=== PATIENT | male | born 1960 | race Caucasian/White ===

== ENCOUNTER 2018-08-30 05:48 | Day surgery (SDC) | payer MEDICAID ==
[~2018-08-30] VITALS: Ht 177.8 cm; Wt 118.2 kg
[2018-08-30 06:09] LABS: BASOPHILS 0.2 % (0-2); EOSINOPHILS 2.6 % (0-7); HEMATOCRIT 31.2 % (42.0-54.0); HEMOGLOBIN 10.4 g/dL (13.5-17.5); IMMATURE GRANULOCYTES 0.2 % (0-5); LYMPHOCYTES 22.3 % (15-50); MCH 29.1 pg (26.0-34.0); MCHC 33.3 g/dL (31.0-37.0); MCV 87.2 fL (80.0-100.0); MONOCYTES 7.5 % (2-11); NEUTROPHILS 67.2 % (40-80); PLATELET COUNT 186 10x3/uL (130-400); RBC 3.58 10x6/uL (4.20-6.10); RDW 15.8 % (11.5-14.5)
[2018-08-30 06:17] LABS: CREATININE - SERUM 9.6 mg/dL (0.6-1.3)
--- NOTE | 2018-08-30 06:56 | NUR ---
CHIKIS CALLED AT THIS TIME AND INFORMED OF PT BP. SEE ANESTHESIA ORDERS, NAD WILL CONTINUE TO MONITOR.
[2018-08-30] MEDS ORDERED: HYDRALAZINE HCL25 MG PO (06:59)
[2018-08-30] MEDS ORDERED: COREG25 MG PO (06:59)
[2018-08-30] MEDS ORDERED: BUMEX2 MG PO (07:00)
[2018-08-30] MEDS ORDERED: TRAZODONE HCL300 MG PO (07:00)
[2018-08-30] MEDS ORDERED: ISOSORBIDE MONO30 M1 PO (07:01)
[2018-08-30] MEDS ORDERED: PROCARDIA10 MG PO (07:01)
[2018-08-30] MEDS ORDERED: LIPITOR80 MG PO (07:01)
[2018-08-30] MEDS ORDERED: CELEXA40 MG PO (07:01)
[2018-08-30] MEDS ORDERED: ASPIRIN81 MG PO (07:02)
[2018-08-30 07:11] VITALS: BP 220/139; BMI 38.5
[2018-08-30 07:35] LABS: INR 1.14 (0.85-1.17); PROTIME 14.1 SECONDS (11.6-15.0)
[2018-08-30 07:36] LABS: APTT 75.4 SECONDS (22.8-39.4)
--- NOTE | 2018-08-30 12:53 | NUR ---
1156 PATIENT ARRIVED FROM OR. PT WAS PLACED ON OXYGEN BUT BECAME OBSTRUCTED RESPIRATORY. RESPIRATIONS GIVEN BY AMBU BAG. NASAL TRUMPET PLACED TO HELP SECURE AIRWAY. MEDICATIONS GIVEN BY ANESTHESIA (ATROPINE, EPINEPHRINE) (SEE ANESTHESIA NOTE). PATIENT STARTED WAKING UP AND PLACED ON SIMPLE OXYGEN MASK WITH HEART RATE IN 90'S AND O2 SAT 100%. PATIENT VOMITED AND WAS SUCTIONED. PATIENT BECAME MORE AWARE AND LESS CONFUSED. NOW STABLE AND BEING ADMITTED TO OBSERVATION.
--- NOTE | 2018-08-30 13:36 | NUR ---
ESTEBAN Potts RN GAVE REPORT TO HARMEET HUTCHINSON NURSE ON MED 2 AT 1332. TNRN TO TRANSPORT
[2018-08-30 14:15] VITALS: BP 109/68; Ht 177.8 cm; Wt 118.2 kg
--- NOTE | 2018-08-30 14:55 | NUR ---
RECIEVED REPORT FROM ESTEBAN @2020. PT ARRIVED AT THE FLOOR @1420. PT ARRIVED FROM RECOVERY ON HOSPITAL BED. PT ALERT BUT CONFUSED, PT STATES HE STILL FEELS A LITTLE WEAK. VSS, NO S/S OF DISTRESS. RR UNLABORED. PT ABDOMEN APPEARS DISTENDED. PT HAD A PRIOR FISTULA PLACEMENT ON RIGHT ARM. DRESSING, C/D/I. PT ALSO HAD PRIOR PERITONEAL DIALYSIS, DRESSING C/D/I. PT C/O PAIN ON THE INCISION SIDE, 10/06. STATES ITS NOT SIGNIFICANT. PLACED SCD ON PT PER, ELEVATE HOB, INCENTIVE SPIROMETER @BEDSIDE PER PHYSICIAN ORDER. FAMILY AT BEDSIDE, PT DENIES ANY FURTHER NEEDS AT THIS TIME. WILL CTM. CL IN REACH, BED IN LOW. WILL CPOC.
--- NOTE | 2018-08-30 15:00 | NUR ---
ADMISSION ASSESMENT COMPLETED. COMPLETED NEPHROLOGY MED REC WITH MACHINE RIVETER, BARBARA, AND ALSO NOTIFIED DR. YBARRA. BARBARA DC'D PT NS AND LR, AND CTN'D HOSSEIN VALDEZN. PT CURRENTLY RESTING IN BED. CL IN REACH, BED IN LOW FAMILY AT BEDSIDE.
[2018-08-30 16:38] VITALS: BP 116/81
--- NOTE | 2018-08-30 19:22 | NUR ---
RECIEVED REPORT ON PT. PT RESTING IN BED ALERT AND ORIENTED. PT DENIES ANY NEEDS OR PAIN AT THIS TIME. BED LOW CALL LIGHT WITHIN REACH. WILL CONTINUE TO MONITOR.
[2018-08-30 20:00] VITALS: BP 151/84
--- NOTE | 2018-08-31 01:49 | NUR ---
PT RESTING IN BED WITH EYES CLOSED RESPIRATIONS EVEN AND UNLABORED. BED LOW CALL LIGHT WITHIN REACH. WILL CONTINUE TO MONIOR.
[2018-08-31 04:00] VITALS: BP 166/99
--- NOTE | 2018-08-31 05:44 | NUR ---
RESTING IN BED WITH EYES CLOSED. NO S/S OF DISTRESS OBSERVED, WILL CONT. POC.
--- NOTE | 2018-08-31 07:49 | NUR ---
INITIAL ROUNDING COMPLETE. CAREGIVERS INTRODUCED, WHITE BOARD UPDATED. PATIENT STATES HE IS GOING HOME IN A "LITTLE BIT HOPEFULLY". PATIENT IS DRESSED AND RESTING IN THE BED WITH HOB AT 45 DEGREES, HE DENIES PAIN, NO SOB/DISTRESS NOTED. NO IV ACCESS. ON ROOM AIR AT THIS TIME.
[2018-08-31 09:07] LABS: BASOPHILS 0.1 % (0-2); EOSINOPHILS 0 % (0-7); HEMATOCRIT 30.2 % (42.0-54.0); HEMOGLOBIN 10.1 g/dL (13.5-17.5); IMMATURE GRANULOCYTES 0.3 % (0-5); LYMPHOCYTES 7.8 % (15-50); MCH 29.4 pg (26.0-34.0); MCHC 33.4 g/dL (31.0-37.0); MCV 87.8 fL (80.0-100.0); MONOCYTES 4.8 % (2-11); PLATELET COUNT 219 10x3/uL (130-400); RBC 3.44 10x6/uL (4.20-6.10); RDW 15.9 % (11.5-14.5)
[2018-08-31 09:11] LABS: WBC 18.7 10x3/uL (4.8-10.8)
[2018-08-31 09:14] LABS: ANION GAP 22.5 mmol/L (8-16); CALCIUM 7.4 mg/dL (8.5-10.1); CARBON DIOXIDE 18.6 mmol/L (21.0-32.0); CREATININE - SERUM 9.3 mg/dL (0.6-1.3); POTASSIUM - SERUM 4.1 mmol/L (3.5-5.1)
[2018-08-31 09:40] VITALS: BP 179/118
[2018-08-31] MEDS ORDERED: LEVOFLOXACIN500 MG PO (09:45)
--- NOTE | 2018-08-31 10:21 | NUR ---
SPOKE TO EBER KIM AT THIS TIME. INFORMED HER OF THE PATIENTS ELEVATED BLOOD PRESSURE, ORDERING CLONIDINE TO GIVE AT THIS TIME. PATIENT INSTRUCTED THAT HE IS NOT ABLE TO BE DISCHARGED UNTIL HIS BLOOD PRESSURE COMES DOWN, HE AGREES.
[2018-08-31 11:55] VITALS: BP 201/120
--- NOTE | 2018-08-31 12:02 | NUR ---
SPOKE TO EBER KIM, AT THIS TIME REPORTING THE BLOOD PRESSURE OF 201/120. NEW ORDER TO GIVE CLONIDINE 0.2 MG ONE TIME NOW
--- NOTE | 2018-09-13 13:37 | OP ---
PATIENT NAME: DOT GAYTAN MEDICAL RECORD: [id number] :60 LOCATION:D.OPS ADMISSION DATE: SURGEON: OMAR ANDERSON MD DATE OF OPERATION: 08/30/2018 REFERRING PHYSICIANS: Dr. Hardwick at [facility]; Karime Gunter APRN at [facility] and also Dr. Madera. PREOPERATIVE DIAGNOSES: Chronic kidney disease IV, hypertension, sleep apnea, morbid obesity. POSTOPERATIVE DIAGNOSES: Chronic kidney disease IV, hypertension, sleep apnea, morbid obesity. OPERATION PERFORMED: Creation of a right radiocephalic Marcia wrist AV fistula followed by laparoscopic implantation of peritoneal dialysis catheter. ANESTHESIA: General endotracheal per CASINO DEALER ANESTHESIOLOGIST: Antoni Berkowitz MD SURGEON: Omar Anderson MD PREOPERATIVE NOTE: Mr. Gaytan is a 57-year-old obese white male patient with worsening renal functions. He was referred for dialysis access. He hopes to be able to do home peritoneal dialysis as he lives quite a distance from the dialysis centers. He is to have a fistula created and a PD catheter implanted. This morning, he had not taken his blood pressure medicine and he was severely hypertensive in the outpatient department, 250/150. He was given his routine a.m. p.o. blood pressure medications and his blood pressure rapidly dropped and to something the range of 100 systolic. DESCRIPTION OF PROCEDURE: In the operating room, the patient was given a general endotracheal anesthesia, prepped and draped in sterile manner and the right arm examined with Duplex ultrasound with the use of topical nitroglycerin and a Adriana drain functioning as a proximal venous tourniquet. The patient has an excellent cephalic vein and large radial artery. Unfortunately, there is a tributary of the cephalic vein, which passes closer to the radial artery and it is of significantly smaller caliber than the main vein. However, I believe it is adequate and should provide a good fistula. I made a longitudinal incision and exposed the cephalic vein tributary and the radial artery. The radial artery was controlled with Silastic loops. Branches were divided with electrocautery. The vein was fully mobilized and treated with topical papaverine. It was distally ligated, divided, bevelled and spatulated and flushed and dilated with dilute heparinized saline. An atraumatic vascular clamp was used proximally. The artery was occluded and a 5-mm or 7-mm arteriotomy made and the artery flushed proximally and distally with heparinized saline. No systemic heparinization was utilized. The anastomosis end of vein to side of artery was then completed with a running 7-0 Prolene and when completed and the occluding clamp and arterial loops were released quite good flow developed immediately within the fistula. The patient, however, was hypotensive really throughout the operation despite OPERATIVE REPORT [id number] DOT GAYTAN pressors administered by the CASINO DEALER. During the latter half of the procedure, he was on a dopamine drip. He had no cardiac dysrhythmias intraoperative or episodes of desaturation. He was not bradycardic or tachycardic. The patient's incision was closed with interrupted inverted 3-0 Vicryl after infiltration with 0.25% Marcaine without epinephrine. Skin was closed with running intracuticular 4-0 Monocryl and Dermabond glue and a dressing of Maxorb Ag, Tegaderm and Cavilon skin prep applied. He was then completely reprepped and redraped. I placed a 5-mm XL Optiview port with a 5-mm 0-degree laparoscope in place through a incision in the left upper quadrant. Pneumoperitoneum was established with carbon dioxide and the patient was placed in Trendelenburg position. There were no hernias present. There was really no visible omentum in the anterior or lower abdomen. No adhesions at all. I measured with the dialysis catheter, a swan-neck dual-cuff coil catheter, measured an appropriate distance above the symphysis pubis and made an incision to the right of the midline beneath the umbilicus. The anterior rectus sheath was exposed and an introducer needle inserted through the point I had anticipated from my measurements and with laparoscopic guidance the introducer needle was advanced within the rectus sheath and anterior to the peritoneum as far inferiorly really is possible. A guidewire was then inserted and passed down into the pelvis. The needle removed. A dilator peel-away introducer was inserted and through that then the Medcomp coil swan-neck dual-cuff catheter inserted. The white line was kept anterior and the Dacron felt cuff was pushed into the rectus muscle and a pursestring suture in the anterior rectus sheath of 0 Vicryl was placed. The catheter was then placed in a subcutaneous tunnel, which curved laterally and inferiorly to an exit site selected in the right lower quadrant. The catheter was flushed with saline and 250 cc of saline irrigated into the abdomen and then this ran out with gravity under the laparoscopic insufflation pressure without any difficulties. The catheter was clamped and capped, and the exit site dressed with a chlorhexidine Biopatch and a Tegaderm with Cavilon skin prep, and the catheter was then coiled and covered with a 4 x 4 Primapore adhesive dressing. The primary incision was closed with interrupted inverted 3-0 Vicryl and running intracuticular 4-0 Monocryl and Dermabond glue and that incision was dressed with Maxorb Ag, Tegaderm and Cavilon as was the laparoscopic incision. First the laparoscopic instrumentation was removed and carbon dioxide allowed to escape through the catheter after which it was removed and the area infiltrated with Marcaine and the wound closed with a single interrupted inverted 3-0 Vicryl and some Dermabond glue and that was also dressed then with Maxorb Ag, Tegaderm and Cavilon skin prep. The patient was awakened and extubated and taken to the recovery room where he had difficulties with airway obstruction. He does have a history of sleep apnea and at one point almost had to be resuscitated until his airway was cleared and he was awake enough to breathe on his own. He did not have any significant bradycardia or tachyarrhythmias or significant changes in his EKG and has been maintaining blood pressure without pressors. The blood loss during the procedure was 0, none was replaced obviously. Sponges, instruments and needles were accounted for. No drain was used and no surgical specimen was submitted for histopathology. PLAN: The patient needs to stay in the hospital for overnight observation and hopefully his family can bring his CPAP device from home if they did not OPERATIVE REPORT [id number] DOT GAYTAN already. He will continue with same medications. I am sure Dr. Madera will reevaluate his present antihypertensive regimen. He will probably go home tomorrow and follow up with me in my office in 2 weeks and he will need to go to the dialysis unit nearest his home, which I believe is [place] or [place], and have his catheter flushed and that will need to be done a minimum of weekly until he has trained and can begin regular PD exchanges. TRANSINT:[id number] Voice Confirmation ID: [id number] DOCUMENT ID: [id number] OMAR ANDERSON MD at 1337 CC: HEATHER GUNTER, DEB HARDWICK MD and FRANK MADERA [id number] DICTATION DATE: 08/30/18 1246 FLEET SERVICE CLERK: 08/30/18 1355 [facility] 08/31/18 [place] [id number] [place] [id number]
== END 2018-08-31 13:37 | disposition home or self-care (01) ==
LOC: D.OPS 05:48 → D.M2 05:48 → D.OPS 08:00 → D.M2 13:26 → D.OPS 08-31 13:37
PROVIDERS: Internal Medicine; Surgery
DX: I12.0 Hypertensive chronic kidney disease with stage 5 chronic kidney disease or end stage renal disease (principal); G47.30 Sleep apnea, unspecified; E66.01 Morbid (severe) obesity due to excess calories; N18.5 Chronic kidney disease, stage 5; D63.1 Anemia in chronic kidney disease; Z68.37 Body mass index [BMI] 37.0-37.9, adult

== ENCOUNTER 2019-01-24 07:12 | Day surgery (SDC) | payer MEDICAID ==
[~2019-01-24] VITALS: Ht 177.8 cm; Wt 117.9 kg
[~2019-01-24 07:12] MED LIST: ASPIRIN81 MG PO; BUMEX2 MG PO; CELEXA40 MG PO; COREG25 MG PO; HYDRALAZINE HCL25 MG PO; ISOSORBIDE MONO30 M1 PO; LEVOFLOXACIN500 MG PO; LIPITOR80 MG PO; PROCARDIA10 MG PO; TRAZODONE HCL300 MG PO
[2019-01-24 07:44] LABS: ANION GAP 27.2 mmol/L (8-16); CALCIUM 7.4 mg/dL (8.5-10.1); CARBON DIOXIDE 13.9 mmol/L (21.0-32.0); CREATININE - SERUM 18.6 mg/dL (0.6-1.3); POTASSIUM - SERUM 4.1 mmol/L (3.5-5.1)
[2019-01-24 07:53] LABS: INR 1.26 (0.85-1.17); PROTIME 15.2 SECONDS (11.6-15.0)
[2019-01-24 07:59] LABS: BASOPHILS 0.2 % (0-2); EOSINOPHILS 2.5 % (0-7); HEMATOCRIT 28.2 % (42.0-54.0); HEMOGLOBIN 9.7 g/dL (13.5-17.5); IMMATURE GRANULOCYTES 0.3 % (0-5); LYMPHOCYTES 17.9 % (15-50); MCHC 34.4 g/dL (31.0-37.0); MCV 87.3 fL (80.0-100.0); MEAN PLATELET VOLUME 8.9 fL (7.4-10.4); MONOCYTES 6.8 % (2-11); NEUTROPHILS 72.3 % (40-80); PLATELET COUNT 216 10x3/uL (130-400); RBC 3.23 10x6/uL (4.20-6.10); RDW 15.4 % (11.5-14.5); WBC 12.8 10x3/uL (4.8-10.8)
[2019-01-24] MEDS ORDERED: LEVOTHYROXINE200 MCG PO (09:08)
[2019-01-24 09:17] VITALS: BP 125/73; Ht 177.8 cm; Wt 117.9 kg
[2019-01-24] MEDS ORDERED: HYDROCODON-ACE1 EAC7 PO (11:38)
--- NOTE | 2019-01-24 13:25 | NUR ---
ASSUMED CARE OF PATIENT. EATING FL DIET. FAMILY AT BEDSIDE.
--- NOTE | 2019-01-24 13:46 | NUR ---
TOLERATED DIET. IV DC'D WITH CATHETER INTACT.
--- NOTE | 2019-01-24 13:55 | NUR ---
EPISODE OF NAUSEA AND VOMITING. EMESIS IN SLING . SLING REMOVED. CLEANED AND NEW SLING APPLIED.
--- NOTE | 2019-01-24 14:02 | NUR ---
ZOFRAN 4MG IV ADMINISTERED PER ORDERS.
--- NOTE | 2019-01-24 14:55 | NUR ---
RELATES FEELING BETTER. IV DC'D WITH CATHETER INTACT. WRITTEN AND VERBAL DC INST GIVEN TO PT ALONG WITH RX.
--- NOTE | 2019-01-24 15:00 | NUR ---
DC'D HOME WITH FAMILY/ FRIEND VIA PRIVATE VEHICLE. STABLE AT TIME OF DC.
--- NOTE | 2019-01-24 21:55 | OP ---
PATIENT NAME: DOT GAYTAN MEDICAL RECORD: [id number] :60 LOCATION:BETO ADMISSION DATE: SURGEON: OMAR ANDERSON MD DATE OF OPERATION: 01/24/2019 PREOPERATIVE DIAGNOSIS: Chronic kidney disease V. POSTOPERATIVE DIAGNOSIS: Chronic kidney disease V. OPERATION PERFORMED: Creation of a left radiocephalic Marcia type wrist arteriovenous fistula. SURGEON: Omar Anderson MD ANESTHESIA: Regional nerve block plus TIVA per HEALTH TECH. PREOPERATIVE NOTE: Mr. Gaytan is a 58-year-old white male patient with worsening renal failure, who will likely need dialysis fairly soon and is to have a fistula created today. DESCRIPTION OF PROCEDURE: Under anesthesia, the patient was prepped and draped in a sterile manner. I examined him with ultrasound after applying a Lasara drain as a proximal venous tourniquet and nitroglycerin paste to the intact skin of the arm and forearm. The patient had a large basilic vein on the medial aspect of the forearm and upper arm, also had a very large prominent cephalic vein from the wrist up into the upper arm and then clear of calcification 4 mm radial artery at the wrist. The patient has limited range of motion in his left elbow, but I did not think that it was so severe as it would contraindicate wrist fistula for him and I proceeded with that. I made a longitudinal incision at the wrist and exposed the radial artery and controlled with Silastic loops and mobilized the cephalic vein. I ligated and divided several tributaries using 3-0 Vicryl. The vein was transected and bevelled and prepared for anastomosis. It was treated with topical papaverine and flushed with heparinized saline. The artery was opened for about 6 mm and an end-to-side, end of vein to side of artery anastomosis was performed with running 7-0 Prolene. When completed and the occluding loops and clamps were released, excellent flow developed immediately within the fistula and there was preservation of flow in the distal radial artery by Doppler. There was an excellent palpable thrill over the anastomosis. I did additional color duplex ultrasound and demonstrated a turbulent pulsatile flow in the cephalic and median antebrachial vein from the wrist up to the antecubital space. The wound was inspected and hemostasis assured with electrocautery that I used discretely. The wound was closed with a few interrupted simple 3-0 Vicryl and running intracuticular 4-0 Monocryl. The incision was sealed and further closed with glue and then dressed with Maxorb AG, Cavilon skin prep and Tegaderm. He was awakened and in stable condition taken to the recovery room. Blood loss during the procedure had been essentially none. All sponges, instruments and needles were accounted for. No drain was used and no surgical specimen was submitted for histopathology. PLAN: The patient will be able to go home today, and I will be seeing him back in my office for followup in 2 weeks. He is given a prescription for 20 tablets of Ozark 5/325. He can take 1 or if necessary 2 p.o. q.4 hours p.r.n. pain. He is to take his sling off tomorrow and to resume normal activities as tolerated. OPERATIVE REPORT [id number] LUKASCHRIS YOVANI He is to continue all of his home medications. TRANSINT:[id number] Voice Confirmation ID: [id number] DOCUMENT ID: [id number] OMAR ANDERSON MD at 2152 CC: MELVIN JONES MD [id number] DICTATION DATE: 01/24/19 1155 BIOCHEMISTRY TECHNOLOGIST: 01/24/19 1223 [facility] 01/24/19 [facility] [address] [place] [address]
== END 2019-01-24 15:00 | disposition home or self-care (01) ==
LOC: D.OPS 07:12
PROVIDERS: ATTEND Surgery
DX: N18.5 Chronic kidney disease, stage 5 (principal); Z01.812 Encounter for preprocedural laboratory examination

== ENCOUNTER 2019-04-18 06:44 | Day surgery (SDC) | payer MEDICAID ==
[~2019-04-18] VITALS: Ht 177.8 cm; Wt 104.3 kg
[~2019-04-18 06:44] MED LIST changes: +HYDROCODON-ACE1 EAC7 PO; +LEVOTHYROXINE200 MCG PO
[2019-04-18 07:35] LABS: BASOPHILS 0.5 % (0-2); EOSINOPHILS 2.4 % (0-7); HEMATOCRIT 38.9 % (42.0-54.0); HEMOGLOBIN 12.7 g/dL (13.5-17.5); IMMATURE GRANULOCYTES 0.6 % (0-5); MCH 30.7 pg (26.0-34.0); MCHC 32.6 g/dL (31.0-37.0); MEAN PLATELET VOLUME 8.8 fL (7.4-10.4); MONOCYTES 8.3 % (2-11); NEUTROPHILS 56.2 % (40-80); RBC 4.14 10x6/uL (4.20-6.10); RDW 16.3 % (11.5-14.5); WBC 11.8 10x3/uL (4.8-10.8)
[2019-04-18 07:36] LABS: INR 1.08 (0.85-1.17); PROTIME 13.5 SECONDS (11.6-15.0)
[2019-04-18 07:37] LABS: ANION GAP 19.6 mmol/L (8-16); CALCIUM 8.4 mg/dL (8.5-10.1); CARBON DIOXIDE 26.9 mmol/L (21.0-32.0); CREATININE - SERUM 10.8 mg/dL (0.6-1.3); POTASSIUM - SERUM 5.5 mmol/L (3.5-5.1)
[2019-04-18 07:40] LABS: PLATELET COUNT 302 10x3/uL (130-400)
[2019-04-18] MEDS ORDERED: COUMADIN5 MG PO (08:33)
[2019-04-18 08:34] VITALS: Ht 177.8 cm; Wt 104.3 kg
--- NOTE | 2019-04-18 16:22 | NUR ---
1500-DISCHARGE CRITERIA MET. FLUSHED HEMASPLIT WITH 1.5ML OF HEPARIN. VSS. REVIEWED POST OPERATIVE INSTRUCTIONS WITH PT. VERBALIZED UNDERSTANDING. ESCORTED OUT VIA W/C WITH AWAITING TO DRIVE HOME.
--- NOTE | 2019-04-18 16:27 | NUR ---
1500-LATE ENTRY. ABLE TO FEEL THRILL AND HEAR BRUIT. DRESSING CDI
--- NOTE | 2019-04-23 12:38 | OP ---
PATIENT NAME: DOT GAYTAN MEDICAL RECORD: [id number] :60 LOCATION:[facility] ADMISSION DATE: SURGEON: OMAR ANDERSON MD DATE OF OPERATION: 04/18/2019 PREOPERATIVE DIAGNOSIS: End-stage renal disease and dependence on hemodialysis and failure of peritoneal dialysis and stenosis of left upper extremity radiocephalic AV fistula. POSTOPERATIVE DIAGNOSES: End-stage renal disease and dependence on hemodialysis and failure of peritoneal dialysis and stenosis of left upper extremity radiocephalic AV fistula. OPERATION PERFORMED: Removal of PD catheter and left upper extremity fistulogram with angioplasty of stenoses of the JA segment and arterial anastomosis and selective left radial artery arteriogram with ultrasound-guided access of the fistula with micropuncture technique with a permanent recording of ultrasound images placed in the patient's chart. SURGEON: Omar Anderson MD ANESTHESIA: General endotracheal per SPORTS PHYSIOLOGIST. PREOPERATIVE NOTE: Mr. Gaytan is a 58-year-old white male patient who is presently on hemodialysis via left wrist radiocephalic fistula. He has failed PD and is to have his peritoneal dialysis catheter removed today. He also has had problems with diminished flow rates and his left arm AV fistula and is to have a fistulogram. On my physical examination, the fistula has excellent emptying but poor augmentation and I suspect there is JA or anastomotic stenosis. DESCRIPTION OF THE PROCEDURE: Under general endotracheal anesthesia, the patient was placed in the supine position, prepped and draped in sterile manner. The incision to the right of the midline just below the umbilicus was re-opened and the peritoneal dialysis catheter exposed as it passed through the anterior rectus sheath. Electrocautery dissection and blunt dissection the Dacron felt cuff from the rectus muscle and the intra-abdominal portion of the catheter was easily removed. The fascial defect was closed with a single 8-0 Vicryl suture. Further electrocautery and blunt dissection exposed the superficial Dacron felt cuff in the subcutaneous tissues and this was freely dissected free and the catheter transected and the external portion discarded. The rest of the catheter was then removed and discarded as well. The wounds were irrigated with saline and the wound closed with interrupted inverted 3-0 Vicryl and then running intracuticular 4-0 Stratafix and Dermabond glue and a dressing of Maxorb Ag, Tegaderm, and Cavilon skin prep was applied. The old PD catheter exit site was dressed with some Bactroban ointment. The patient was then completely re-prepped and re-draped with the left arm abducted and positioned for angiography. Using ultrasound guidance and micropuncture technique, I cannulated the patient's fistula near the arterial anastomosis with the catheter-directed antegrade, which means directed medially. OPERATIVE REPORT [id number] DOT GAYTAN Contrast injections were performed and a fistulogram imaged the cephalic vein in the forearm and the runoff veins both cephalic and basilic, all the way to the right atrium. The patient has a tunneled dialysis catheter in place in the right internal jugular vein. There does not appear to be any central venous stenosis or other venous obstruction. Retrograde study was then performed by occluding the proximal fistula and I found that there was a severe 90+ percent stenosis of the JA segment and arterial anastomosis. I then inserted a 6-Kinyarwanda introducer into the fistula more proximally. This was directed retrograde in a distal direction and under fluoroscopy, I was able to pass a guidewire and the Barre catheter across the area of stenosis and actually across the arterial anastomosis and into the radial artery. I advanced the catheter up to above the brachial bifurcation and performed a digital subtraction angiography. This revealed a stenosis of the radial artery over the 2-3 cm just proximal to the arterial anastomosis and confirmed the severe arterial anastomotic stenosis and JA stenosis. A 5 x 40 mm angioplasty balloon was placed in the JA segment and arterial anastomosis and inflated to its full extent and held for 30 seconds twice and then removed. Repeated contrast injection into the radial artery demonstrated persistent stenosis in the JA segment. This was subsequently a re-dilated with a 7-mm angioplasty balloon and repeat contrast injection revealed thrombosis of the radial artery. This was then treated by heparinizing the patient with 5000 units given systemically and with the 5-mm diameter balloon, I reopened the radial artery from its origin to the arterial anastomosis of the fistula. Nitroglycerin was applied to the skin in the area of the radial artery spasm/stenosis. Repeat contrast injection subsequently revealed anabaptist of flow without evidence of remaining intraluminal clots or other defects or spasm in the radial artery flow in the fistula is indeed more brisk than it had been preop and there is an excellent palpable thrill. There is a pulsatile Doppler flow in the fistula and in the proximal radial artery and there is pulsatile flow in the radial artery distal to the arterial anastomosis. This is retrograde flow from the ulnar side as demonstrated by Doppler. The 6-Kinyarwanda introducer and the 5-Kinyarwanda micropuncture catheter were both removed. Hemostasis at the #6 Kinyarwanda site was obtained with a [id number] 4-0 Prolene and period of direct pressure and both sites were subsequently dressed with Ultrafoam and Tegaderm with Cavilon skin prep. The patient was awakened from his anesthetic and in stable condition with a functioning fistula and taken to the recovery room. PLAN: For the patient to go home today, he will resume his usual daily dose of Coumadin starting this evening and will continue on his daily 81 mg aspirin. He is to continue his routine diet and all of his home medications and his routine dialysis schedule. He is to follow up with me in my office next week and plan on removing the dressing from the abdominal wound at that time. He may change the dressing before that if he wants to, but there is not any definite need. We will ask the dialysis unit to remove the suture from his left forearm when he goes to dialysis tomorrow. TRANSINT:[id number] Voice Confirmation ID: [id number] DOCUMENT ID: [id number] OPERATIVE REPORT [id number] DOT GAYTAN JAMES MD at 1238 CC: MELVIN JONES MD [id number] DICTATION DATE: 04/18/19 1317 CUSTOMER ASSOCIATE: 04/19/19 0004 [facility] 04/18/19 [facility] [address] [place] [address]
== END 2019-04-18 15:00 | disposition home or self-care (01) ==
LOC: D.OPS 06:44
PROVIDERS: Surgery; ATTEND Internal Medicine Nephrology
DX: T82.9XXA Unspecified complication of cardiac and vascular prosthetic device, implant and graft, initial encounter (principal); T82.858A Stenosis of other vascular prosthetic devices, implants and grafts, initial encounter